=== PATIENT | male | born 1995 | race Caucasian/White ===

== ENCOUNTER 2017-06-23 20:08 | Emergency (ER) | payer BC ==
[2017-06-23] MEDS ORDERED: Famotidine In NaCl 20 mg/50 ml Premix Bag ONE (20:37)
[2017-06-23] MEDS ORDERED: Ondansetron HCl/PF 4 MG/2 ML Vial ONE (20:37)
[2017-06-23] MEDS ORDERED: Ketorolac Tromethamine 30 MG/ML VIAL ONE (20:37)
[2017-06-23 20:48] LABS: #Basophils 0.2 thou/uL (0.0-0.2); #Eosinphils 0.2 thou/uL (0.0-0.7); #Lymphocytes 1.9 thou/uL (1.20-3.40); #Monocytes 0.9 thou/uL (0.11-0.59); #Neutrophils 10.5 thou/uL (1.40-6.50); %Basophils 1.3 % (0.0-1.0); %Eosinophils 1.2 % (0.0-10.0); %Lymphocytes 14.1 % (28.0-48.0); %Monocytes 6.6 % (0.0-4.0); %Neutrophils 76.9 % (31.0-61.0); Hemoglobin 15.2 g/dL (14.0-18.0); Mean Corpuscular HGB CONC 37.5 g/dL (32.0-36.0); Mean Corpuscular Hemoglobin 32.3 pg (25.0-35.0); Mean Platelet Volume 7.5 fL (7.4-10.4); Platelet Count 252 thou/uL (130-400); RBC Distribution Width 12.1 % (11.5-14.5); Red Blood Cell (RBC) Count 4.71 mill/uL (4.00-5.20); White Blood Cell (WBC) Count 13.6 thou/uL (4.8-10.8)
[2017-06-23 20:54] LABS: Manual Diff?? NO
[2017-06-23 20:55] LABS: MDiff Complete? YES
[2017-06-23 20:56] LABS: ALT (SGPT) 19 U/L (8-55); AST (SGOT) 22 U/L (10-45); Albumin 3.9 g/dL (3.5-5.0); Alkaline Phosphatase 69 U/L (Less than 750); Anion Gap 14 mmol/L (10-20); BUN (Urea Nitrogen) 8 mg/dL (8.4-21.0); Bilirubin, Total 0.3 mg/dL (0.2-1.2); Calc. Creatinine Clearance 0 mL/min (70-130); Calcium 9.4 mg/dL (7.8-10.44); Carbon Dioxide 25 mmol/L (22-29); Chloride 105 mmol/L (98-107); Estimated GFR-MDRD Greater than 90; Globulin 3.4 g/dL (2.4-3.5); Glucose 121 mg/dL (70-105); Lipase 14 U/L (8-78); Potassium 3.8 mmol/L (3.5-5.1); Protein, Total 7.3 g/dL (6.0-8.3); Sodium 140 mmol/L (136-145)
[2017-06-23] MEDS ORDERED: HYDROcodone/Acetaminophen 10/325 mg Tablet ONE (21:35)
== END 2017-06-23 21:36 | disposition home or self-care (01) ==
LOC: BURERS 20:08
DX: K80.50 Calculus of bile duct without cholangitis or cholecystitis without obstruction (principal); F17.210 Nicotine dependence, cigarettes, uncomplicated
CPT/HCPCS: 80053; 83690; 85025; 96365; 96375; J1885; J2405

== ENCOUNTER 2017-06-30 08:28 | Outpatient (CLI) | payer OTHER ==
--- NOTE | 2017-07-01 07:32 | ULT ---
ABDOMINAL ULTRASOUND: 06/30/17 Ultrasonography of the abdomen was performed for evaluation of biliary colic. Documentary images and worksheets were provided and reviewed. The liver is enlarged measuring 17.2 cm in oblique sagittal length. Internally, there were no dilated ducts or signs of mass. Portal venous flow was towards the liver as expected. There is intense shado wing in the gallbladder fossa consistent with gallstones. The wall is somewhat thick at 2 to 3 mm. Th e common bile duct is enlarged at 8 to 9 mm. No stones were seen within it, however, due to overlying bowel gas this would be easily missed if present. The pancreas was mostly obscured by gas. The splee n is normal in size. the kidneys both appear normal with the right measuring 12.3 cm in length and th e left 12.2 cm. The aorta is included in some of the images and showed no focal findings. IMPRESSION: 1. Gallstones with mild to moderate gallbladder wall thickening. 2. Enlargement of the common bile duct (8 to 9 mm), but no intrahepatic ductal dilatation. 3. Mild hepatomegaly. POS: HOME
== END 2017-06-30 08:29 | disposition home or self-care (01) ==
LOC: BURULT 08:28
PROVIDERS: ATTEND Physician Assistant
DX: K80.70 Calculus of gallbladder and bile duct without cholecystitis without obstruction (principal); R16.0 Hepatomegaly, not elsewhere classified; K83.8 Other specified diseases of biliary tract; K82.8 Other specified diseases of gallbladder
CPT/HCPCS: 76700

== ENCOUNTER 2021-03-09 13:17 | Emergency (ER) | payer BC | END 2021-03-09 13:37 | disposition home or self-care (01) | LOC: BURERS 13:17 | DX: L02.11 Cutaneous abscess of neck (principal); L02.512 Cutaneous abscess of left hand; F17.210 Nicotine dependence, cigarettes, uncomplicated | CPT/HCPCS: 99283 ==